=== PATIENT | female | born 1970 | race Caucasian/White ===

== ENCOUNTER → 2019-11-25 | Outpatient (CLI) | payer BC ==
--- NOTE | 2019-11-28 09:23 | USB ---
Reason for exam: clinical finding. History: Retro-pectoral silicone gel implants in both breasts, 2015. Physical Findings: Nurse Summary: right breast palpable upper outer quadrant 1 x 1.5cm, movable, tender at times, bilateral silicone implants, retropectoral (nurse ts). US Breast RT Right complete breast ultrasound includes all four quadrants, the retroareolar region and axilla. Finding demonstrates a 0.3 x 0.3 x 0.3cm oval, cystic, benign lesion at 1 o'clock, a 0.5 x 0.6 x 0.5cm oval, cystic, benign lesion at 2 o'clock, a 1.0 x 0.6 x 0.3cm oval, cluster, cystic, benign lesion at 3 o'clock, a 0.3 x 0.6 x 0.2cm oval, benign, cystic cluster at 9 o'clock, a 1.4 x 1.5 x 1.0cm oval, cystic, benign lesion at 10 o'clock, a 1.6 x 1.7 x 1.0cm oval, cystic lesion at 10 o'clock with interval reticular echoes at the palpable, likely debris, 6 month follow up recommended, a 1.9 x 2.0 x 0.9cm cystic lesion at 11 o'clock and a 1.2 x 1.8 x 0.8cm axilla lymph node, prominent but benign appearing. These results were verbally communicated with the patient on 11/28/19. ASSESSMENT: Probably benign, BI-RAD 3 RECOMMENDATION: Ultrasound of the right breast in 6 months. (10 o'clock palpable)
== END | disposition home or self-care (01) ==
LOC: RADUSWWP 10:14
PROVIDERS: ATTEND Family Medicine
DX: N63.0 Unspecified lump in unspecified breast (principal)

== ENCOUNTER → 2024-08-21 | Outpatient (CLI) | payer BC ==
--- NOTE | 2024-08-25 22:35 | BD ---
EXAMINATION TYPE: Axial Bone Density DATE OF EXAM: 08/21/2024 CLINICAL HISTORY: 54 years old Female. ICD-10 CODE: E06.3 CRISTOBAL'S THYROIDITIS , Additional Histo ry: Height: 63.5 Weight: 118 FRAX RISK QUESTIONS: Family History (Parent hip fracture): no History of Fracture in Adulthood: no Secondary Osteoporosis: no Current Tobacco Use: yes RISK FACTORS HISTORY OF: Surgery to Spine/Hip(right/left)/Wrist (right/left): no MEDICATIONS: Thyroid Medications: yes Which medication: armour How Lon+ years Osteoporosis Medications: no EXAM MEASUREMENTS: Bone mineral densitometry was performed using the [employer]. Bone mineral density as measured about the Lumbar spine is: ----- L1-L4(G/cm2): 0.818 T Score Values are as follows: ----- L1: -3.9 ----- L2: -3.3 ----- L3: -2.9 ----- L4: -2.4 ----- L1-L4: -3.0 Z Score Values are as follows: ----- L1: -2.7 ----- L2: -2.1 ----- L3: -1.7 ----- L4: -1.2 ----- L1-L4: -1.8 Bone mineral density baseline Bone mineral density about the R hip (g/cm2): 0.817 Bone mineral density about the L hip (g/cm2): 0.808 T Score values are as follows: -----R Neck: -1.7 -----L Neck: -1.5 -----R Total: -1.5 -----L Total: -1.3 Z Score values are as follows: -----R Neck: -0.4 -----L Neck: -0.3 -----R Total: -0.6 -----L Total: -0.4 Bone mineral density baseline FRAX%s: The graph provided illustrates a 6.4% chance for a major osteoporotic fx and a 1.1% chance fo r the hips probability for fx in 10 years time. IMPRESSION: Osteoporosis (T Score less than -2.5). There is increased fracture risk and therapy is usually indicated based on age. Re-Screen 1-2 years. NOTE: T-SCORE=SD OF THE YOUNG ADULT MEAN. [facility], , 08/25/2024 10:33 PM
== END | disposition home or self-care (01) ==
LOC: RADBDWWP 11:27
PROVIDERS: ATTEND Family Medicine
DX: E06.3 Autoimmune thyroiditis (principal); M81.0 Age-related osteoporosis without current pathological fracture
CPT/HCPCS: 77080